=== PATIENT | male | born 1990 | race African-American/Black ===

== ENCOUNTER 2024-09-09 23:10 | Emergency (ER) | payer SELFPAY ==
[~2024-09-09] VITALS: Ht 188 cm; Wt 112.0 kg
[2024-09-09 23:25] VITALS: BP 150/91; PULSE 75; TEMP 98.4; O2SAT 96
[2024-09-09 23:55] VITALS: RESP 16
== END 2024-09-10 01:13 | disposition home or self-care (01) ==
LOC: ER 23:10
DX: R30.0 Dysuria (principal); E78.00 Pure hypercholesterolemia, unspecified; I10 Essential (primary) hypertension; F41.9 Anxiety disorder, unspecified; Z11.3 Encounter for screening for infections with a predominantly sexual mode of transmission
CPT/HCPCS: 99281